=== PATIENT | male | born 1960 ===

== ENCOUNTER 2021-02-27 06:00 | Outpatient (RCR) | payer MEDICARE, SELFPAY | END 2021-03-01 23:59 | disposition home or self-care (01) | LOC: MPT 06:00 | PROVIDERS: Referring Provider Registered Nurse; Visit Provider Registered Nurse | DX: R35.1 Nocturia (principal); R35.0 Frequency of micturition | CPT/HCPCS: 97161; 97530 ==

== ENCOUNTER 2021-03-02 06:00 | Outpatient (RCR) | payer MEDICARE, SELFPAY | END 2021-03-31 23:59 | disposition home or self-care (01) | LOC: MPT 06:00 | PROVIDERS: Referring Provider Registered Nurse; Visit Provider Registered Nurse | DX: R35.1 Nocturia (principal); R35.0 Frequency of micturition | CPT/HCPCS: 97110; 97116; 97140; 97530 ==

== ENCOUNTER 2021-04-01 06:00 | Outpatient (RCR) | payer MEDICARE, SELFPAY | END 2021-05-01 23:59 | disposition home or self-care (01) | LOC: MPT 06:00 | PROVIDERS: Visit Provider Registered Nurse | DX: R35.1 Nocturia (principal); R35.0 Frequency of micturition | CPT/HCPCS: 97140; 97530 ==